=== PATIENT | female | born 2005 | race Two or more races ===

== ENCOUNTER 2025-10-02 09:38 | Outpatient (CLI) | payer BC ==
[2025-10-02 10:17] LABS: Urine Protein, UAD TRACE (Negative)
[2025-10-02 10:19] LABS: Hematocrit 41.4 % (36.0-46.0); Hemoglobin 13.9 g/dL (12.2-16.2); Mean Corpuscular Hemoglobin 30.1 pg (28.0-32.0); Mean Corpuscular Volume 89.2 fL (80.0-100.0); Nucleated Red Blood Cells % 0.1 %
[2025-10-02 10:48] LABS: Alanine Aminotransferase 10 U/L (7-40); Albumin 4.5 g/dL (3.2-4.8); Alkaline Phosphatase 65 U/L (46-116); Amylase 116 U/L (30-118); Anion Gap 8 (5-15); BUN/Creatinine Ratio 15.2 (10.0-20.0); Blood Urea Nitrogen 12 mg/dL (9-23); Calcium 9.6 mg/dL (8.7-10.4); Carbon Dioxide 29 mmol/L (20-31); Chloride 104 mmol/L (98-107); Cholesterol 155 mg/dL (< 200); Glucose 82 mg/dL (74-106); Potassium 3.7 mmol/L (3.5-5.1); Sodium 141 mmol/L (136-145); Total Protein 7.6 g/dL (5.7-8.2); Triglycerides 81 mg/dL (< 150)
[2025-10-02 10:49] LABS: Bilirubin, Total 0.6 mg/dL (0.2-1.0)
[2025-10-02 10:51] LABS: HDL Cholesterol 63 mg/dL (40-59)
[2025-10-02 11:02] LABS: Lipase 32 U/L (12-53)
[2025-10-04 03:07] LABS: Chlamydia Trachomatis, NAA Negative (Negative); Neisseria gonorrhoeae, NAA Negative (Negative)
== END 2025-10-02 17:00 | disposition home or self-care (01) ==
LOC: LAB 09:38
PROVIDERS: ATTEND Nurse Practitioner Family
DX: E03.9 Hypothyroidism, unspecified (principal); R63.0 Anorexia; Z11.3 Encounter for screening for infections with a predominantly sexual mode of transmission; Z00.01 Encounter for general adult medical examination with abnormal findings; Z80.0 Family history of malignant neoplasm of digestive organs
CPT/HCPCS: 36415; 80053; 80061; 81003; 82150; 82306; 83036; 83690; 84439; 84443; 85025; 86300; 86703; 86780